=== PATIENT | male | born 1965 | race Caucasian/White ===

== ENCOUNTER 2019-01-13 07:18 | Day surgery (SDC) | payer OTHER ==
[2019-01-13 08:10] VITALS: BMI 27.4
[2019-01-13 08:18] VITALS: O2SAT 100
--- NOTE | 2019-01-13 09:38 | CP.SDSHP ---
Same Day Surgery H & P - History Proposed Procedure: COLONSCOPY Pre-Op Diagnosis: SEE NOTES - Previous Medical/Surgical History Endocrine/Metabolic: Other Misc: Other Pain: 2.Mild Pain - Allergies Allergies: Allergies No Known Allergies Allergy (Verified 01/13/19 08:08) - Physical Exam General Appearance: N Vital Signs: Vital Signs 01/13/19 08:10 Temperature 97.1 F L Pulse Rate 54 L Respiratory 19 Rate Blood Pressure 103/63 O2 Sat by Pulse 100 Oximetry Mental Status: Alert & Oriented x3 Neuro: WNL Heart: WNL Lungs: WNL GI: WNL - {Optional Preform as Required} Breast: WNL Abdomen: Other Rectal: Other Integument: WNL : WNL Ortho: WNL ENT: WNL - Impression Pt. Evaluated Today:Candidate for Anesthesia & Procedure: Yes - Date & Time Time: 09:38 Short Stay Discharge - Short Stay Discharge Admitting Diagnosis/Reason for Visit: ENCOUNTER FOR SCREENING FOR MALIGNANT NEOPLASM OF Disposition: HOME/ ROUTINE
[2019-01-13] MEDS ORDERED: Lactated Ringer's 500 ML IV ONE (09:39)
[2019-01-13] MEDS ORDERED: Lidocaine Hydrochloride 5 ML INJ ONE (09:41)
[2019-01-13] MEDS ORDERED: Propofol 10 mg/ml Inj (20 ML) ONE (09:41)
[2019-01-13 10:04] VITALS: TEMP 98.7
[2019-01-13 10:57] VITALS: BP 117/83; PULSE 57; RESP 16
== END 2019-01-13 10:54 | disposition home or self-care (01) ==
LOC: C.ENDO 07:18
PROVIDERS: ATTEND Specialist
DX: Z12.11 Encounter for screening for malignant neoplasm of colon (principal); K64.4 Residual hemorrhoidal skin tags; K64.8 Other hemorrhoids; K58.9 Irritable bowel syndrome, unspecified
CPT/HCPCS: 45380; 88305; J2704; J7120